=== PATIENT | male | born 1975 | race Caucasian/White ===

== ENCOUNTER 2017-12-16 10:51 | Emergency (ER) | payer BC, OTHER ==
[~2017-12-16] VITALS: Ht 175.3 cm; Wt 100.6 kg
[2017-12-16 10:54] VITALS: TEMP 36.7; Ht 175.3 cm; Wt 100.6 kg
--- NOTE | 2017-12-16 11:22 | DIAGNOSTIC IMAGING REPORT ---
R KNEE 3 VIEWS CLINICAL HISTORY: Right knee pain status post trauma COMPARISON: None. DISCUSSION: No fractures or dislocations are visualized. IMPRESSION: No fractures or dislocations identified. Electronically signed by: Stalin Salazar M.D. 12/16/2017 11:21 AM Dictated Date/Time: 12/16/2017 11:20 AM
[2017-12-16] MEDS ORDERED: TRAM-10 PO (11:36)
--- NOTE | 2017-12-16 11:44 | EMERGENCY ROOM VISIT NOTE ---
History First contact with patient: 11:01 Chief Complaint: KNEEPAIN Stated Complaint: R KNEE EXTREME PAIN, History of Present Illness The patient is a 42 year old male who presents to the Emergency Room with complaints of a right knee injury last night. The patient reports that he was standing on his porch and started to cough. The patient reports that he was coughing so hard that he believed that he passed out. He therefore does not recall what happened to the knee, but complains of pain over the anteromedial aspect. He has not noticed any instability, clicking or locking of the knee with ambulation. He rates his discomfort a 9 out of 10. He denies any pain extending into the thigh, hip or back. He denies any paresthesias or numbness of the right lower extremity. The patient denies any other injuries from his fall, and denies any prior history of right knee injuries. Review of Systems 10 system review was performed and was negative except for pertinent positives and negatives as indicated in history of present illness Past Medical/Surgical History Medical Problems: (1) Asthma, Unspecified (2) Pilonidal Cyst W/O Absc (3) Tobacco Use Disorder Surgical Problems: (1) No history of previous surgery Family History FH: diabetes mellitus Social History Smoking Status: Current Some Day Smoker Alcohol Use: occasionally Marital Status: single Occupation Status: employed Current/Historical Medications Scheduled PRN Tramadol (Ultram), 1-2 TAB PO Q4H PRN for Pain Physical Exam Vital Signs Date Time Temp Pulse Resp B/P (MAP) Pulse Ox O2 Delivery O2 Flow Rate FiO2 12/16/17 10:54 36.7 94 20 161/94 98 Room Air Physical Exam CONSTITUTIONAL: Healthy and well nourished. Alert and oriented X 3 with positive affect. Patient does not appear in any acute distress. HEENT: Normocephalic, atraumatic. Pupils equal, round and reactive. NECK: Full active range of motion without discomfort. MUSCULOSKELETAL: Examination of the right knee shows some mild soft tissue edema over the pes anserine region. Otherwise, no overriding erythema, ecchymosis, abrasion or laceration noted. Patient has minimal tenderness to palpation over the medial joint line, and no tenderness laterally. Patient exhibits full active flexion and extension. Collateral ligaments are intact. Distal pulses are intact. INTEGUMENTARY: No rash or other significant dermatologic conditions noted. NEUROLOGIC: No focal neurologic deficits noted. Left lower extremity is sensory intact. Medical Decision & Procedures ER Provider Diagnostic Interpretation: My interpretation of right knee x-rays does not show any obvious fractures, dislocation or joint effusion. Radiologist report is as follows: R KNEE 3 VIEWS CLINICAL HISTORY: Right knee pain status post trauma COMPARISON: None. DISCUSSION: No fractures or dislocations are visualized. IMPRESSION: No fractures or dislocations identified. ED Course Patient history and physical exam were performed. Nurse's notes were reviewed. Vital signs were reviewed and were normal. The patient refused any analgesics while in the emergency department. X-rays of the right knee were normal. The patient reports that he does have crutches at home. The patient works in [employer]. I did encourage the patient to avoid kneeling or squatting for now. A knee immobilizer was applied, and the patient was dispensed an ice pack. The patient was encouraged to intermittently apply ice and elevate the knee for swelling and pain. Ibuprofen and Tylenol in alternating fashion for baseline pain relief. The patient was provided a prescription for Ultram as needed for breakthrough pain. The patient was encouraged to follow-up with orthopedics if symptoms are not improving within the next week. The patient was happy with plan of care, voiced understanding of all discharge instructions, and rated his discomfort a 5 out of 10 at the conclusion of my exam, refusing any analgesics prior to discharge. The patient's blood pressure was elevated in the emergency department at 161/ 94. I did suggest that the patient follow-up with his PCP for blood pressure recheck. Medical Decision Medication Reconcilliation Current Medication List: was personally reviewed by me Blood Pressure Screening Patient's blood pressure: Elevated blood pressure Blood pressure disposition: Referred to PCP Impression Primary Impression: Contusion of right knee Additional Impression: Elevated blood pressure reading Departure Information Prescriptions Tramadol (Ultram) 50 Mg Tab 1-2 TAB PO Q4H Y for Pain, #15 TAB For Initial Treatment Prov: Ion Pearson PA 12/16/17 Referrals Alexandre Knox DO (PCP) Patient Instructions My [facility] Problem Qualifiers Primary Impression: Contusion of right knee Encounter type: initial encounter Qualified Codes: S80.01XA - Contusion of right knee, initial encounter
[2017-12-16 11:56] VITALS: BP 152/110; PULSE 85; O2SAT 95
== END 2017-12-16 11:58 | disposition home or self-care (01) ==
LOC: C.EDB 10:53 → C.EDD 11:58
DX: S80.01XA Contusion of right knee, initial encounter (principal); W19.XXXA Unspecified fall, initial encounter; R03.0 Elevated blood-pressure reading, without diagnosis of hypertension; J45.909 Unspecified asthma, uncomplicated; F17.200 Nicotine dependence, unspecified, uncomplicated

== ENCOUNTER 2025-05-17 00:56 | Observation (INO) ==
[2025-05-17 01:23] LABS: Hematocrit (blood only) 35.3 % (42.0-52.0); Hemoglobin 12.1 g/dl (14.0-18.0); Immature Granulocytes # (auto) 0.01 K/uL (0.01-0.20); Immature Granulocytes % (auto) 0.2 %; Mean Corpuscular Hemoglobin 31.3 pg (25.0-34.0); Mean Corpuscular Volume 91.5 fL (80.0-100.0); Platelet Count 127 K/uL (130-400); RDW Standard Deviation 44.8 fL (36.4-46.3); Red Blood Count 3.86 M/uL (4.70-6.10); White Blood Count 4.73 K/ul (4.8-10.8)
[2025-05-17 01:40] LABS: Alanine Aminotransferase 14.0 U/L (7-52); Albumin Globulin Ratio 1.1 (0.9-2); Albumin Level 3.5 gm/dl (3.4-5.0); Alkaline Phosphatase 174.0 U/L (34-104); Anion Gap 11.0 (3-11); Bilirubin,Total 1.9 mg/dl (0.2-1.0); Blood Urea Nitrogen 5.0 mg/dl (6-23); Calcium 8.8 mg/dl (8.6-10.3); Carbon Dioxide 25.0 mmol/L (21-32); Chloride 100.0 mmol/L (98-107); Creatinine Clr Calc Pharmacy 142.0 ml/min; Globulin 3.2 gm/dl (2.5-4.0); Glucose 109.0 mg/dl (70-99(Fasting)); Potassium 3.3 mmol/L (3.5-5.1); Sodium 136.0 mmol/L (136-145); Total Protein 6.7 gm/dl (6.0-8.3)
--- NOTE | 2025-05-17 01:52 | Emergency Department Note ---
Impression & Plan Alcohol withdrawal, Dyspnea admit to the [facility] ED Provider Note NAME: TRACIE PECK AGE: 49 SEX: Male INFORMANT: Patient ED PROVIDER(S): Arleth Leon DO CHIEF COMPLAINT: requesting detox PLAN: Disposition: admit to the [facility] MEDICAL DECISION MAKING: This is a 49-year-old male with history of alcoholism who presents to the emergency department asking for help stating that he needs detox and rehab again. patient also complains of shortness of breath. Patient was admitted to [facility] in March for alcohol rehab. After further discussion with the patient, it seems that he started drinking again shortly after that. He now will withdrawal if he does not drink alcohol routinely. Patient is concerned that his ascites has redeveloped. I saw the patient in the emergency department yesterday for an accidental overdose of kratom and THC Gummies. He was noted to be hypokalemic and hypomagnesemic at that time. Those were replaced. Alcohol level here today is 206. There is no leukocytosis. Hemoglobin is stable. Potassium is normal at 3.3. Magnesium is normal. Patient's D-dimer was elevated to 570. He went for CT scan of the chest to rule out PE. This was negative. Patient's LFTs are elevated. Total bilirubin was 1.9 and AST was 42. Renal function was normal. Patient received IV thiamine and folic acid along with oral multivitamin for his alcohol withdrawal. He was also given a dose of IV Ativan for developing withdrawal symptoms. The patient had to be premedicated with Benadryl and Solu- Medrol for the contrasted CAT scan. [facility] care for detox in preparation to go to rehab again. The retail store manager spoke with the patient and his about the situation. Triage Nursing notes: reviewed and agree with them. Vital Signs: reviewed and unremarkable Additional History obtained from: patient's is at the bedside Chronic Medical/Social Conditions affecting care: alcohol addiction Differential Diagnosis: PE, pneumonia, CHF, alcohol withdrawal, alcohol intoxication, anxiety Diagnostics, independently interpreted by me: ECG: Normal sinus rhythm at a rate of [address] segment elevation or signs of ischemia. patient has a prolonged QT at 510 ms. Cardiac Monitoring: Normal sinus rhythm at a rate of 89 Imaging studies: CTA of the chest: As per [facility] HPI: 49 year old Male arrives for evaluation of Alcohol intoxication. the patient is requesting detox and rehab again. patient also complains of shortness of breath. Patient admits that he has been drinking alcohol regularly since discharge from rehab back in March. It is to the point now that he withdrawals if he does not drink alcohol. PAST MEDICAL HISTORY: See Below, SOCIAL HISTORY: Patient works at [employer], he drinks alcohol regularly, he lives with his . HOME MEDICATIONS: See list ALLERGIES: see list VITALS: See Below PHYSICAL EXAMINATION: HEENT: Head - normocephalic and atraumatic. Pupils are equal, round, and reactive to light. Extraocular eye muscles are intact, and sclera are anicteric. Nose - moist nasal mucosa without discharge. Mouth - moist buccal mucosa. Oropharynx is nonerythematous and there is no tonsillar exudate or edema noted. Neck: Supple;JVD or cervical lymphadenopathy Heart: Regular rate and rhythm. There is a normal S1 and S2 with no murmurs, clicks, or gallops appreciated. Lungs: Clear to auscultation bilaterally with no wheezes, rales, or rhonchi. Abdomen: Soft, mildly distended and nontender with good bowel sounds. There are no palpable pulsatile masses or hepatosplenomegaly. There is no guarding, rigidity, or rebound noted. Extremities: No evidence of cyanosis, clubbing, or edema. There are easily palpable peripheral pulses. Skin: warm and dry with good turgor and no rashes. Emergency Department treatment: stemhole borer and topper, IV thiamine, IV folic acid, oral multivitamin, IV Ativan, IV Benadryl, IV Solu-Medrol emergency department course: The patient was evaluated in room C-3. A complete history and physical was performed. An order was placed for continuous cardiac monitoring. The patient was in a normal sinus rhythm at a rate of 89. Twelve- lead EKG was obtained as described above. Patient had an IV lock initiated and labs drawn as above. He was given a dose of IV thiamine, IV folic acid and oral multivitamin. Patient began to have withdrawal symptoms and was given a dose of IV Ativan. Patient has a known history of shellfish allergy and in preparation for a contrasted CAT scan he was given a dose of IV Benadryl and IV Solu-Medrol. Patient went for CT scan which was negative for PE. I discussed the case with the [facility] Hospitalist and they will evaluate for further inpatient care. Past Med/Surg History Problem List (Updated 05/17/25 @ 05:32 by Arleth Leon DO) Dyspnea (Acute) Alcohol withdrawal (Acute) Hypomagnesemia (Acute) Hypokalemia (Acute) Drug abuse (Acute) Alcohol intoxication (Acute) Unspecified asthma, uncomplicated Tobacco use disorder Medical History (Updated 05/17/25 @ 05:32 by Arleth Leon DO) No known health problems Family History Other No significant family history Social History Smoking Status: Current every day smoker Tobacco Type: Cigarettes Preferred Language: Tamazight Current Living Situation: Family Feels Safe at Home: Yes Allergies Allergies Allergy/AdvReac Type Severity Reaction Status Date / Time shellfish derived Allergy Unknown Unknown Verified 05/16/25 00:27 Sulfa (Sulfonamide AdvReac Intermediate low bp Verified 05/16/25 00:27 Antibiotics) Home Meds Home Medications Medication Instructions Recorded Confirmed apixaban 5 mg tablet (Eliquis) 5 mg PO QAM 05/16/25 05/16/25 fluoxetine 20 mg capsule 20 mg PO QAM 05/16/25 05/16/25 furosemide 40 mg tablet 40 mg PO QAM 05/16/25 05/16/25 pantoprazole 40 mg tablet,delayed 40 mg PO DAILY PRN 05/16/25 05/16/25 release HEARTBURN/INDIGESTION quetiapine 25 mg tablet 25 mg PO HS 05/16/25 05/16/25 spironolactone 50 mg tablet 50 mg PO QAM 05/16/25 05/16/25 triamcinolone acetonide 0.1 % 1 applic topical BID PRN Skin 05/16/25 05/16/25 topical ointment Irritation Results & Data (ED) Vital Signs Vital Signs - 24 hr 05/17/25 01:00 05/17/25 01:27 05/17/25 02:35 Temperature 36.8 C Temperature Source Temporal Artery Scan Pulse Rate 93 H 89 Pulse Rate [Apical] Pulse Rhythm Regular Pulse Rhythm [Apical] Pulse Strength Normal Pulse Strength [Apical] Respiratory Rate 22 Respiratory Effort / Characteristics Non-Labored Spontaneous Respiratory Depth Normal Respiratory Pattern Regular Blood Pressure 137/89 Blood Pressure [Right Arm] Blood Pressure Mean 105 Blood Pressure Mean [Right Arm] Blood Pressure Position Sitting Blood Pressure Position [Right Arm] Pulse Oximetry 96 Oxygen Delivery Method Room Air Room Air Oxygen Flow Rate Sepsis Recent Fever Within 48 Hours No Sepsis New/Unexplained Change in Mental Status No Sepsis Action Taken by Nursing No Action Required 05/17/25 02:45 05/17/25 03:44 05/17/25 04:00 Temperature Temperature Source Pulse Rate 66 Pulse Rate [Apical] 84 91 H Pulse Rhythm Regular Pulse Rhythm [Apical] Regular Pulse Strength Pulse Strength [Apical] Normal Respiratory Rate 14 18 18 Respiratory Effort / Characteristics Non-Labored Spontaneous Respiratory Depth Normal Normal Respiratory Pattern Regular Blood Pressure Blood Pressure [Right Arm] 120/75 131/85 Blood Pressure Mean Blood Pressure Mean [Right Arm] 90 100 Blood Pressure Position Blood Pressure Position [Right Arm] Semi-fowlers Pulse Oximetry 98 96 96 Oxygen Delivery Method Room Air Nasal Cannula Room Air Oxygen Flow Rate 2 Sepsis Recent Fever Within 48 Hours Sepsis New/Unexplained Change in Mental Status Sepsis Action Taken by Nursing 05/17/25 05:03 Temperature Temperature Source Pulse Rate 87 Pulse Rate [Apical] Pulse Rhythm Pulse Rhythm [Apical] Pulse Strength Pulse Strength [Apical] Respiratory Rate Respiratory Effort / Characteristics Respiratory Depth Respiratory Pattern Blood Pressure Blood Pressure [Right Arm] Blood Pressure Mean Blood Pressure Mean [Right Arm] Blood Pressure Position Blood Pressure Position [Right Arm] Pulse Oximetry Oxygen Delivery Method Oxygen Flow Rate Sepsis Recent Fever Within 48 Hours Sepsis New/Unexplained Change in Mental Status Sepsis Action Taken by Nursing Laboratory Data 05/17/25 01:08 05/17/25 01:08 Lab Results 05/17/25 05/17/25 Range/Units 01:08 01:12 WBC 4.73 L (4.8-10.8) K/ul RBC 3.86 L (4.70-6.10) M/uL Hgb 12.1 L (14.0-18.0) g/dl Hct 35.3 L (42.0-52.0) % MCV 91.5 (80.0-100.0) fL MCH 31.3 (25.0-34.0) pg MCHC 34.3 (32.0-36.0) g/dL RDW Std Deviation 44.8 (36.4-46.3) fL RDW Coeff of Zaheer 13.3 (11.5-14.5) % Plt Count 127 L (130-400) K/uL MPV 9.3 L (9.4-12.4) fL Immature Gran % (Auto) 0.2 % Neut % (Auto) 65.7 % Lymph % (Auto) 24.1 % [place] % (Auto) 7.2 % Eos % (Auto) 1.5 % Baso % (Auto) 1.3 % Neut # (Auto) 3.11 (1.40-6.50) K/uL Lymph # (Auto) 1.14 L (1.20-3.40) K/uL [place] # (Auto) 0.34 (0.11-0.59) K/uL Eos # (Auto) 0.07 (0.00-0.50) K/uL Baso # (Auto) 0.06 (0.00-0.20) K/uL Immature Gran # (Auto) 0.01 (0.01-0.20) K/uL D-Dimer 570 H* (0-500) ug/L FEU Sodium 136 (136-145) mmol/L Potassium 3.3 L (3.5-5.1) mmol/L Chloride 100 (98-107) mmol/L Carbon Dioxide 25 (21-32) mmol/L Anion Gap 11 (3-11) BUN 5 L (6-23) mg/dl Creatinine 0.73 (0.6-1.4) mg/dl Est Cr Clr Drug Dosing 142.0 ml/min eGFR 112.23 BUN/Creatinine Ratio 6.8 L (10-20) Glucose 109 H (70-99(Fasting)) mg/dl Calcium 8.8 (8.6-10.3) mg/dl Magnesium 1.8 (1.7-2.4) mg/dl Total Bilirubin 1.9 H (0.2-1.0) mg/dl AST 42 H (13-39) U/L ALT 14 (7-52) U/L Alkaline Phosphatase 174 H (34-104) U/L Total Protein 6.7 (6.0-8.3) gm/dl Albumin 3.5 (3.4-5.0) gm/dl Globulin 3.2 (2.5-4.0) gm/dl Albumin/Globulin Ratio 1.1 (0.9-2) Ethyl Alcohol mg/dL 206.5 H (<10.0) mg/dl Administered Medications Discontinued Medications Diphenhydramine HCl (Diphenhydramine 50 Mg/Ml Vial) 25 mg IV NOW STA Stop: 05/17/25 02:22 Last Admin: 05/17/25 02:33 Dose: 25 mg Documented By: ADA Folic Acid 1 mg/ Syringe 10 mls @ 5 mls/min IV NOW ONE Stop: 05/17/25 01:44 Last Admin: 05/17/25 02:33 Dose: 5 mls/min Documented By: ADA Thiamine HCl 100 mg/ Syringe 10 mls @ 2 mls/min IV NOW ONE Stop: 05/17/25 01:47 Last Admin: 05/17/25 02:33 Dose: 2 mls/min Documented By: ADA Ioversol (Optiray 320 125ml) 118 ml IV ONCE ONE Stop: 05/17/25 03:15 Last Admin: 05/17/25 03:14 Dose: 118 ml Documented By: CHANDRIKA Lorazepam (Lorazepam 1 Mg/1 Ml Syr Ed Inj Use) 1 mg IV ONE STA Stop: 05/17/25 02:43 Last Admin: 05/17/25 02:46 Dose: 1 mg Documented By: ADA Methylprednisolone (Methylprednisolone 125 Mg/2 Ml Vial) 125 mg IV NOW STA Stop: 05/17/25 02:22 Last Admin: 05/17/25 02:33 Dose: 125 mg Documented By: ADA Multivitamins (Multivitamin Tab) 1 tab PO NOW ONE Stop: 05/17/25 01:44 Last Admin: 05/17/25 02:32 Dose: 1 tab Documented By: ADA Potassium Chloride (Potassium Chloride Crtab 20 Meq Tabcr) 40 meq PO NOW STA Stop: 05/17/25 04:36 Last Admin: 05/17/25 04:54 Dose: 40 meq Documented By: ERNST Imaging Data Radiologist's Impression: Abdomen/Pelvis CT 05/17/25 02:15 EXAM: CT abd pelvis IV con only CLINICAL HISTORY: eval ascites TECHNIQUE: Contiguous axial images were obtained from the level of the diaphragm to the pubic symphysis with intravenous contrast. Coronal and sagittal reconstructions were likewise performed and indicated to increase the sensitivity for detecting clinically relevant pathology. If IV contrast material had not been administered, the likelihood of detecting abnormalities relevant to the patient's condition would have been substantially decreased. CT scan was performed according to ALARA (as low as reasonably achievable). COMPARISON: None. FINDINGS: The visualized lung bases are clear. Sliding hiatus hernia noted. Hepatomegaly measuring about 20 cm with hepatic steatosis. No focal liver lesions are seen. There is no intra or extrahepatic biliary ductal dilatation. Hepatic vasculature is patent. Mild dilatation of portal veins with few small collaterals are noted in peripancreatic region and at the splenic hilum - suggest possibility of portal hypertension. Splenomegaly measuring about 15 cm. The gallbladder is present. The pancreas, and adrenal glands are unremarkable. The kidneys are normal in size and attenuation. There is no hydronephrosis or perinephric fat stranding. No renal calculi or renal masses are identified. The ureters are normal in caliber and no ureteral calculi are seen. The bladder is normal in contour. Pelvic viscera are unremarkable. No focal or diffuse bowel wall thickening or evidence of bowel obstruction is identified. No imaging evidence of appendicitis. Abdominal and pelvic vasculature is patent. No adenopathy or fluid collections are seen. No aggressive appearing osseous lesions are identified. Bilateral fat containing inguinal hernia without complication. IMPRESSION: Hepatomegaly with hepatic steatosis. Splenomegaly. Mild dilatation of portal veins with few small collaterals are noted in peripancreatic region and at the splenic hilum - suggest possibility of portal hypertension. No ascites. Bilateral fat containing inguinal hernia without complication. Electronically signed by Adolfo Coates 05-17-2025 04:24 AM Chest CTA 05/17/25 02:15 EXAM: CT angio chest PE protocol CLINICAL HISTORY: PE TECHNIQUE: Contiguous axial images were obtained from the neck base through the upper abdomen following intravenous administration of iodinated contrast material. Angiographic images were processed, and 3D MIP images were acquired for interpretation. If IV contrast material had not been administered, the likelihood of detecting abnormalities relevant to the patient's condition would have been substantially decreased. Coronal and sagittal 3-D MIPs were likewise performed and indicated to increase the sensitivity of detecting diffuse, clinically relevant pathology. The CT scan was performed according to ALARA (as low as reasonably achievable). COMPARISON: CT dated 06/08/2019 12:37:56 [employer]. FINDINGS: Adequate contrast bolus is noted without evidence of pulmonary embolism. Dependent reticulations are seen. The central airways are patent. The rest of the lungs are clear. There is no pleural effusion. The heart, aorta, and pulmonary arteries are of normal size and configuration. No pericardial effusion is identified. There are no appreciable coronary artery or aortic atherosclerotic calcifications. The thyroid is unremarkable. No mediastinal, hilar, or axillary lymphadenopathy is noted. No suspicious lytic or sclerotic osseous lesions are identified. Note is made of an enlarged spleen. IMPRESSION: 1. No evidence of pulmonary embolism or pulmonary disease. Electronically signed by Adolfo Coates 05-17-2025 04:18 AM Discharge Plan Visit Data Chief Complaint: Shortness of Breath/Dyspnea Stated Complaint: DRUNK,SOB,ALLERGIC REACTION ED Provider: Arleth Leon Discharge Problem: Alcohol withdrawal, Dyspnea Condition: Fair Forms Stand Alone Forms: [facility] Prescriptions Prescriptions: No Action quetiapine 25 mg tablet 25 mg PO HS furosemide 40 mg tablet 40 mg PO QAM pantoprazole 40 mg tablet,delayed release (DR/EC) 40 mg PO DAILY PRN (Reason: HEARTBURN/INDIGESTION) triamcinolone acetonide 0.1 % ointment 1 applic TOPICAL BID PRN (Reason: Skin Irritation) fluoxetine 20 mg capsule 20 mg PO QAM spironolactone 50 mg tablet 50 mg PO QAM Eliquis 5 mg tablet 5 mg PO QAM Rx Instructions: ORDERED BID, PER PT "ONLY TAKE QAM". Referrals Referrals: Andrew Null DO [Primary Care Provider] -
[2025-05-17 02:05] LABS: Magnesium 1.8 mg/dl (1.7-2.4)
[2025-05-17] MEDS: MULTIVITAMIN TAB PO ONE (02:32)
[2025-05-17] MEDS: FOLIC ACID 1 MG in SYRINGE 9.8 ML IV ONE (02:33)
[2025-05-17] MEDS: THIAMINE HCL 100 MG in SYRINGE 9 ML IV ONE (02:33)
[2025-05-17] MEDS: diphenhydrAMINE 50 MG/ML VIAL IV STA (02:33)
[2025-05-17] MEDS: LORazepam 1 MG/1 ML SYR ED Inj Use IV STA (02:46)
[2025-05-17] MEDS: OPTIRAY 320 125ml IV ONE (03:14)
--- NOTE | 2025-05-17 04:18 | CT Scan Report ---
EXAM: CT angio chest PE protocol CLINICAL HISTORY: PE TECHNIQUE: Contiguous axial images were obtained from the neck base through the upper abdomen following intravenous administration of iodinated contrast material. Angiographic images were processed, and 3D MIP images were acquired for interpretation. If IV contrast material had not been administered, the likelihood of detecting abnormalities relevant to the patient's condition would have been substantially decreased. Coronal and sagittal 3-D MIPs were likewise performed and indicated to increase the sensitivity of detecting diffuse, clinically relevant pathology. The CT scan was performed according to ALARA (as low as reasonably achievable). COMPARISON: CT dated 06/08/2019 12:37:[address]. FINDINGS: Adequate contrast bolus is noted without evidence of pulmonary embolism. Dependent reticulations are seen. The central airways are patent. The rest of the lungs are clear. There is no pleural effusion. The heart, aorta, and pulmonary arteries are of normal size and configuration. No pericardial effusion is identified. There are no appreciable coronary artery or aortic atherosclerotic calcifications. The thyroid is unremarkable. No mediastinal, hilar, or axillary lymphadenopathy is noted. No suspicious lytic or sclerotic osseous lesions are identified. Note is made of an enlarged spleen. IMPRESSION: 1. No evidence of pulmonary embolism or pulmonary disease. Electronically signed by Adolfo Coates 05-17-2025 04:18 AM
--- NOTE | 2025-05-17 04:25 | CT Scan Report ---
EXAM: CT abd pelvis IV con only CLINICAL HISTORY: eval ascites TECHNIQUE: Contiguous axial images were obtained from the level of the diaphragm to the pubic symphysis with intravenous contrast. Coronal and sagittal reconstructions were likewise performed and indicated to increase the sensitivity for detecting clinically relevant pathology. If IV contrast material had not been administered, the likelihood of detecting abnormalities relevant to the patient's condition would have been substantially decreased. CT scan was performed according to ALARA (as low as reasonably achievable). COMPARISON: None. FINDINGS: The visualized lung bases are clear. Sliding hiatus hernia noted. Hepatomegaly measuring about 20 cm with hepatic steatosis. No focal liver lesions are seen. There is no intra or extrahepatic biliary ductal dilatation. Hepatic vasculature is patent. Mild dilatation of portal veins with few small collaterals are noted in peripancreatic region and at the splenic hilum - suggest possibility of portal hypertension. Splenomegaly measuring about 15 cm. The gallbladder is present. The pancreas, and adrenal glands are unremarkable. The kidneys are normal in size and attenuation. There is no hydronephrosis or perinephric fat stranding. No renal calculi or renal masses are identified. The ureters are normal in caliber and no ureteral calculi are seen. The bladder is normal in contour. Pelvic viscera are unremarkable. No focal or diffuse bowel wall thickening or evidence of bowel obstruction is identified. No imaging evidence of appendicitis. Abdominal and pelvic vasculature is patent. No adenopathy or fluid collections are seen. No aggressive appearing osseous lesions are identified. Bilateral fat containing inguinal hernia without complication. IMPRESSION: Hepatomegaly with hepatic steatosis. Splenomegaly. Mild dilatation of portal veins with few small collaterals are noted in peripancreatic region and at the splenic hilum - suggest possibility of portal hypertension. No ascites. Bilateral fat containing inguinal hernia without complication. Electronically signed by Adolfo Coates 05-17-2025 04:24 AM
[2025-05-17] MEDS: POTASSIUM CHLORIDE CRTAB 20 MEQ TABCR PO STA (04:54)
--- NOTE | 2025-05-17 05:41 | History & Physical Report ---
Date of Service May 17, 2025 Assessment & Plan (1) Alcoholism: Plan: 49-year-old male with past medical history significant for dyslipidemia, peripheral vascular disease, GERD, history of tick bite, depression, tobacco abuse, ongoing alcoholism presents for alcohol detox request. Patient was in alcohol rehab in [place] in [facility] in March 2025. But seems to started drinking shortly after the rehab. Patient was in the ER yesterday because he took [id number] kratom and also THC Gummies and drank 2 white claws which have 8% alcohol and was having dizziness, abdominal bloating and shortness of breath. He was found to have hypokalemia and hypomagnesia which were replaced. His symptoms improved and was discharged home to follow-up with PCP. Patient seems again he was drinking alcohol today. His states he was drinking again white claws alcohol. Patient called from his work and told he was not feeling good and getting withdrawal symptoms ,was feeling short of breath and shaky and told her that he wanted to get help and want to go to rehab again and later again drank alcohol.. brought him to the hospital for alcohol detox and rehab placement. wanted him to go to same rehab as he was in March. As patient was complaining of some shortness of breath with D-dimer elevation and also was worried for abdominal ascites CTA chest and CT abdomen pelvis were done. No PE and no ascites were found. Patient received Benadryl and also IV Ativan and somewhat drowsy currently. Denies any headache. Denies chest pain. Denies abdominal pain. Denies nausea. Has cough from smoking. Normal bowel and bladder movements. Hemodynamics are okay. is in the room. Alcoholism Alcohol detox request Alcohol withdrawal Request for alcohol rehab placement Received IV Ativan in the ER Will continue with alcohol withdrawal protocol with gabapentin and IV Ativan as needed Received IV thiamine in ER will continue IV thiamine, IV folic acid and multivitamins Close monitor for withdrawals History of PE Diagnosed in March of this year as per CTA chest no PE today Continue Eliquis History of alcohol liver cirrhosis with ascites CT abdomen pelvis no ascites today Continue home Lasix and spironolactone GERD On Protonix Prolonged QTc Avoid QT prolonging drugs Replacing potassium Will follow repeat EKG Depression Hold fluoxetine and Seroquel for now for prolonged QTc Pancytopenia Mostly from alcohol liver cirrhosis Hemoglobin 12.1 and platelets 127 Will follow labs. DVT prophylaxis On Eliquis. Will monitor platelets Disposition Med/telemetry Full code History of Present Illness Chief Complaint: Alcoholism Primary Care Provider: Andrew Null DO 49-year-old male with past medical history significant for dyslipidemia, peripheral vascular disease, GERD, history of tick bite, depression, tobacco abuse, ongoing alcoholism presents for alcohol detox request. Patient was in alcohol rehab in [place] in [facility] in March 2025. But seems to started drinking shortly after the rehab. Patient was in the ER yesterday because he to ok [id number] kratom and also THC Gummies and drank 2 white claws which have 8% alcohol and was having dizziness, abdominal bloating and shortness of breath. He was found to have hypokalemia and hypomagnesia which were replaced. His symptoms improved and was discharged home to follow-up with PCP. Patient seems again he was drinking alcohol today. His states he was drinking again white claws alcohol. Patient called from his work and told he was not feeling good and getting withdrawal symptoms ,was feeling short of breath and shaky and told her that he wanted to get help and want to go to rehab again and later again drank alcohol.. brought him to the hospital for alcohol detox and rehab placement. wanted him to go to same rehab as he was in March. As patient was complaining of some shortness of breath with D-dimer elevation and also was worried for abdominal ascites CTA chest and CT abdomen pelvis were done. No PE and no ascites were found. Patient received Benadryl and also IV Ativan and somewhat drowsy currently. Denies any headache. Denies chest pain. Denies abdominal pain. Denies nausea. Has cough from smoking. Normal bowel and bladder movements. Hemodynamics are okay. is in the room. Past medical history. As mentioned above. Past surgical history. Colonoscopy. Dental surgery. EGD. EGD with endoscopic ultrasound. Injection of the lumbosacral spine. Social history. . Smoking electric cigarettes as per . Drinking heavy alcohol. Uses marijuana recreationally as per epic. Family history. Father alcoholism. Mother had osteoarthritis. Allergies Allergy/AdvReac Type Severity Reaction Status Date / Time shellfish derived Allergy Unknown Unknown Verified 05/16/25 00:27 Sulfa (Sulfonamide AdvReac Intermediate low bp Verified 05/16/25 00:27 Antibiotics) Home Medications Medication Instructions Recorded Confirmed Type apixaban 5 mg tablet (Eliquis) 5 mg PO BID 05/17/25 05/17/25 History fluoxetine 20 mg capsule 20 mg PO DAILY 05/17/25 05/17/25 History furosemide 40 mg tablet 40 mg PO DAILY 05/17/25 05/17/25 History pantoprazole 40 mg tablet,delayed 40 mg PO DAILY 05/17/25 05/17/25 History release quetiapine 25 mg tablet 25 mg PO HS 05/17/25 05/17/25 History spironolactone 50 mg tablet 50 mg PO DAILY 05/17/25 05/17/25 History Past Med/Surg History Problem List (Updated 05/17/25 @ 05:44 by Zuhair Sanderson MD) Alcoholism Dyspnea (Acute) Alcohol withdrawal (Acute) Hypomagnesemia (Acute) Hypokalemia (Acute) Drug abuse (Acute) Alcohol intoxication (Acute) Unspecified asthma, uncomplicated Tobacco use disorder Medical History (Updated 05/17/25 @ 05:44 by Zuhair Sanderson MD) No known health problems Family History Other No significant family history Social History Smoking Status: Current every day smoker Tobacco Type: Cigarettes Preferred Language: [place] Current Living Situation: Family Feels Safe at Home: Yes Review of Systems Review of Systems: Unobtainable due to reduced consciousness Physical Exam Physical Exam: General- Drowsy Head- atraumatic Eyes- PERRL. ENT- oropharynx clear Neck- supple, no JVD. Lungs- clear to auscultation no wheezing or crackles Heart- regular rhythm; no murmur, no gallop. Abdomen- normal bowel sounds, soft, nontender, no distension Extremities- no pretibial edema, no erythema seen Neuro- Drowsy ; PERRL, ; no facial palsy; no dysarthria; moves extremities Results & Data Results & Data Vital Signs (Past 12 Hours) Vital Signs Temp Pulse Pulse Resp BP BP Pulse Ox 05/17/25 05:03 87 05/17/25 04:00 91 H 18 131/85 96 09/13/25 03:44 66 18 96 05/17/25 02:45 84 14 120/75 98 05/17/25 02:35 05/17/25 01:27 89 05/17/25 01:00 36.8 C 93 H 22 137/89 96 O2 Del Method O2 Flow Rate 05/17/25 05:03 05/17/25 04:00 Room Air 05/17/25 03:44 Nasal Cannula 2 05/17/25 02:45 Room Air 05/17/25 02:35 Room Air 05/17/25 01:27 05/17/25 01:00 Room Air Diagnostic Findings Laboratory Results WBC 4.73 K/ul (4.8-10.8) L 05/17/25 01:08 RBC 3.86 M/uL (4.70-6.10) L 05/17/25 01:08 Hgb 12.1 g/dl (14.0-18.0) L 05/17/25 01:08 Hct 35.3 % (42.0-52.0) L 05/17/25 01:08 MCV 91.5 fL (80.0-100.0) 05/17/25 01:08 MCH 31.3 pg (25.0-34.0) 05/17/25 01:08 MCHC 34.3 g/dL (32.0-36.0) 05/17/25 01:08 RDW Std Deviation 44.8 fL (36.4-46.3) 05/17/25 01:08 RDW Coeff of Zaheer 13.3 % (11.5-14.5) 05/17/25 01:08 Plt Count 127 K/uL (130-400) L 05/17/25 01:08 MPV 9.3 fL (9.4-12.4) L 05/17/25 01:08 Immature Gran % (Auto) 0.2 % 05/17/25 01:08 Neut % (Auto) 65.7 % 05/17/25 01:08 Lymph % (Auto) 24.1 % 05/17/25 01:08 [place] % (Auto) 7.2 % 05/17/25 01:08 Eos % (Auto) 1.5 % 05/17/25 01:08 Baso % (Auto) 1.3 % 05/17/25 01:08 Neut # (Auto) 3.11 K/uL (1.40-6.50) 05/17/25 01:08 Lymph # (Auto) 1.14 K/uL (1.20-3.40) L 05/17/25 01:08 [place] # (Auto) 0.34 K/uL (0.11-0.59) 05/17/25 01:08 Eos # (Auto) 0.07 K/uL (0.00-0.50) 05/17/25 01:08 Baso # (Auto) 0.06 K/uL (0.00-0.20) 05/17/25 01:08 Immature Gran # (Auto) 0.01 K/uL (0.01-0.20) 05/17/25 01:08 D-Dimer 570 ug/L FEU (0-500) H* 05/17/25 01:12 Sodium 136 mmol/L (136-145) 05/17/25 01:08 Potassium 3.3 mmol/L (3.5-5.1) L 05/17/25 01:08 Chloride 100 mmol/L (98-107) 05/17/25 01:08 Carbon Dioxide 25 mmol/L (21-32) 05/17/25 01:08 Anion Gap 11 (3-11) 05/17/25 01:08 BUN 5 mg/dl (6-23) L 05/17/25 01:08 Creatinine 0.73 mg/dl (0.6-1.4) 05/17/25 01:08 Est Cr Clr Drug Dosing 142.0 ml/min 05/17/25 01:08 eGFR 112.23 05/17/25 01:08 BUN/Creatinine Ratio 6.8 (10-20) L 05/17/25 01:08 Glucose 109 mg/dl (70-99(Fasting)) H 05/17/25 01:08 Calcium 8.8 mg/dl (8.6-10.3) 05/17/25 01:08 Magnesium 1.8 mg/dl (1.7-2.4) 05/17/25 01:08 Total Bilirubin 1.9 mg/dl (0.2-1.0) H 05/17/25 01:08 AST 42 U/L (13-39) H 05/17/25 01:08 ALT 14 U/L (7-52) 05/17/25 01:08 Alkaline Phosphatase 174 U/L (34-104) H 05/17/25 01:08 Total Protein 6.7 gm/dl (6.0-8.3) 05/17/25 01:08 Albumin 3.5 gm/dl (3.4-5.0) 05/17/25 01:08 Globulin 3.2 gm/dl (2.5-4.0) 05/17/25 01:08 Albumin/Globulin Ratio 1.1 (0.9-2) 05/17/25 01:08 Ethyl Alcohol mg/dL 206.5 mg/dl (<10.0) H 05/17/25 01:08 Impressions Abdomen/Pelvis CT 05/17/25 02:15 EXAM: CT abd pelvis IV con only CLINICAL HISTORY: eval ascites TECHNIQUE: Contiguous axial images were obtained from the level of the diaphragm to the pubic symphysis with intravenous contrast. Coronal and sagittal reconstructions were likewise performed and indicated to increase the sensitivity for detecting clinically relevant pathology. If IV contrast material had not been administered, the likelihood of detecting abnormalities relevant to the patient's condition would have been substantially decreased. CT scan was performed according to ALARA (as low as reasonably achievable). COMPARISON: None. FINDINGS: The visualized lung bases are clear. Sliding hiatus hernia noted. Hepatomegaly measuring about 20 cm with hepatic steatosis. No focal liver lesions are seen. There is no intra or extrahepatic biliary ductal dilatation. Hepatic vasculature is patent. Mild dilatation of portal veins with few small collaterals are noted in peripancreatic region and at the splenic hilum - suggest possibility of portal hypertension. Splenomegaly measuring about 15 cm. The gallbladder is present. The pancreas, and adrenal glands are unremarkable. The kidneys are normal in size and attenuation. There is no hydronephrosis or perinephric fat stranding. No renal calculi or renal masses are identified. The ureters are normal in caliber and no ureteral calculi are seen. The bladder is normal in contour. Pelvic viscera are unremarkable. No focal or diffuse bowel wall thickening or evidence of bowel obstruction is identified. No imaging evidence of appendicitis. Abdominal and pelvic vasculature is patent. No adenopathy or fluid collections are seen. No aggressive appearing osseous lesions are identified. Bilateral fat containing inguinal hernia without complication. IMPRESSION: Hepatomegaly with hepatic steatosis. Splenomegaly. Mild dilatation of portal veins with few small collaterals are noted in peripancreatic region and at the splenic hilum - suggest possibility of portal hypertension. No ascites. Bilateral fat containing inguinal hernia without complication. Electronically signed by Adolfo Coates 05-17-2025 04:24 AM Chest CTA 05/17/25 02:15 EXAM: CT angio chest PE protocol CLINICAL HISTORY: PE TECHNIQUE: Contiguous axial images were obtained from the neck base through the upper abdomen following intravenous administration of iodinated contrast material. Angiographic images were processed, and 3D MIP images were acquired for interpretation. If IV contrast material had not been administered, the likelihood of detecting abnormalities relevant to the patient's condition would have been substantially decreased. Coronal and sagittal 3-D MIPs were likewise performed and indicated to increase the sensitivity of detecting diffuse, clinically relevant pathology. The CT scan was performed according to ALARA (as low as reasonably achievable). 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 FINDINGS: Adequate contrast bolus is noted without evidence of pulmonary embolism. Dependent reticulations are seen. The central airways are patent. The rest of the lungs are clear. There is no pleural effusion. The heart, aorta, and pulmonary arteries are of normal size and configuration. No pericardial effusion is identified. There are no appreciable coronary artery or aortic atherosclerotic calcifications. The thyroid is unremarkable. No mediastinal, hilar, or axillary lymphadenopathy is noted. No suspicious lytic or sclerotic osseous lesions are identified. Note is made of an enlarged spleen. IMPRESSION: 1. No evidence of pulmonary embolism or pulmonary disease. Electronically signed by Adolfo Coates 05-17-2025 04:18 AM ECG Additional Comments: ECG. Normal sinus rhythm rate of 88. Possible left atrial lodgment. QTc 510. No significant change was found. Code Status & VTE Plan VTE Prophylaxis Plan VTE Prophylaxis will be ordered: Yes
[2025-05-17] MEDS ORDERED: GABAPENTIN 1200MG ALCOHOL WITHDRAWAL LOAD PO STA (12:35)
[2025-05-17] MEDS ORDERED: NITROGLYCERIN SL 0.4 MG/TAB TAB SL PRN (12:35)
[2025-05-17] MEDS: APIXABAN 5 MG TABLET PO SCH (13:06)
[2025-05-17] MEDS: GABAPENTIN 600 MG TAB PO ONE (13:06)
[2025-05-17] MEDS: MULTIVITAMIN TAB PO SCH (13:07)
[2025-05-17 13:19] LABS: Anion Gap 7.0 (3-11); Blood Urea Nitrogen 5.0 mg/dl (6-23); Calcium 8.8 mg/dl (8.6-10.3); Carbon Dioxide 26.0 mmol/L (21-32); Chloride 104.0 mmol/L (98-107); Creatinine Clr Calc Pharmacy 167.2 ml/min; Glucose 158.0 mg/dl (70-99(Fasting)); Magnesium 1.8 mg/dl (1.7-2.4); Potassium 4.4 mmol/L (3.5-5.1); Sodium 137.0 mmol/L (136-145)
[2025-05-17] MEDS: SODIUM CHLORIDE 0.9% 1,000 ML IV SCH (13:20)
[2025-05-17] MEDS: FOLIC ACID 1 MG in SYRINGE 9.8 ML IV SCH (13:20)
[2025-05-17] MEDS: THIAMINE HCL 100 MG in SYRINGE 9 ML IV SCH (13:21)
--- NOTE | 2025-05-17 13:34 | Hospitalist Progress Note ---
Date of Service May 17, 2025 Assessment & Plan (1) Alcoholism: Plan: 49-year-old male with past medical history significant for dyslipidemia, peripheral vascular disease, GERD, history of tick bite, depression, tobacco abuse, ongoing alcoholism presents for alcohol detox request. Patient was in alcohol rehab in [place] in [facility] in March 2025. But seems to started drinking shortly after the rehab. Patient was in the ER yesterday because he took [id number]-[id number] kratom and also THC Gummies and drank 2 white claws which have 8% alcohol and was having dizziness, abdominal bloating and shortness of breath. He was found to have hypokalemia and hypomagnesia which were replaced. His symptoms improved and was discharged home to follow-up with PCP. Patient seems again he was drinking alcohol today. His states he was drinking again white claws alcohol. Patient called from his work and told he was not feeling good and getting withdrawal symptoms ,was feeling short of breath and shaky and told her that he wanted to get help and want to go to rehab again and later again drank alcohol.. brought him to the hospital for alcohol detox and rehab placement. wanted him to go to same rehab as he was in March. As patient was complaining of some shortness of breath with D-dimer elevation and also was worried for abdominal ascites CTA chest and CT abdomen pelvis were done. No PE and no ascites were found. Patient received Benadryl and also IV Ativan and somewhat drowsy currently. Denies any headache. Denies chest pain. Denies abdominal pain. Denies nausea. Has cough from smoking. Normal bowel and bladder movements. Hemodynamics are okay. is in the room. Alcoholism Alcohol withdrawal Alcohol level 206 drug screen positive for THC, Alcohol Continue gabapentin protocol IV Ativan as needed Continue thiamine, folic acid Monitor for withdrawal Patient interested in drug rehab placement Hypokalemia Replete and monitor Elevated D-dimer H/O PE --Chest CTA:No evidence of pulmonary embolism or pulmonary disease. -- Venous Doppler pending Continue Eliquis Hepatosplenomegaly Possible portal hypertension H/O Alcohol liver cirrhosis with ascites --CT ABD:Hepatomegaly with hepatic steatosis. Splenomegaly. Mild dilatation of portal veins with few small collaterals are noted in peripancreatic region and at the splenic hilum - suggest possibility of portal hypertension. No ascites. Bilateral fat containing inguinal hernia without complication. -- Counseled to quit alcohol use Interested in drug rehab placement Continue home diuretics Lasix, Aldactone Monitor volume status H/O THC use Denies any recent use GERD Continue Protonix Prolonged QTc Avoid QT prolonging drugs Monitor EKG Depression Hold fluoxetine and Seroquel for now for prolonged QTc Pancytopenia Due to alcohol liver disease Monitor CBC DVT Px: Eliquis CODE STATUS Full code Disposition Case management to help with discharge planning Admission and Anticipated Discharge Date Admission Date: May 17, 2025 Subjective Patient is seen and examined at bedside " I feel foggy" Reports back pain and shortness of breath better when compared to yesterday Chronic intermittent palpitations No other complaints today Interested in going to drug rehab facility when stable Review of Systems Review of Systems: All systems reviewed & are unremarkable except as noted in Subjective Physical Exam Physical Exam: Physical Exam: Vitals signs as noted above General Appearance:Overweight, no apparent distress Head: normocephalic, Atraumatic Eyes: normal inspection, EOMI Neck: supple, Trachea midline Respiratory/Chest: Normal breath sounds, CTA, No accessory muscle use Cardiovascular: S1, S2, No murmur Abdomen/GI:Soft, Non tender, Bowel sounds present Extremities/Musculoskeletal:normal inspection, no edema Neurologic/Psych:AAOX3, grossly no focal neurological deficits, +Tremor Skin: normal color, warm Results & Data Results & Data Vital Signs (Past 12 Hours) Vital Signs Pulse Pulse Resp BP BP Pulse Ox O2 Del Method 05/17/25 12:00 87 16 138/87 91 Room Air 05/17/25 10:45 92 H 12 91 05/17/25 10:30 90 12 135/89 95 Room Air 05/17/25 09:20 85 05/17/25 08:00 91 H 16 120/78 92 Nasal Cannula 05/17/25 06:00 95 H 18 131/91 95 Nasal Cannula 05/17/25 05:03 87 05/17/25 04:00 91 H 18 131/85 96 Nasal Cannula 05/17/25 03:44 66 18 96 Nasal Cannula 05/17/25 02:45 84 14 120/75 98 Room Air 05/17/25 02:35 Room Air 05/17/25 01:27 89 O2 Flow Rate 05/17/25 12:00 05/17/25 10:45 05/17/25 10:30 05/17/25 09:20 05/17/25 08:00 2 05/17/25 06:00 2 05/17/25 05:03 05/17/25 04:00 2 05/17/25 03:44 2 05/17/25 02:45 05/17/25 02:35 05/17/25 01:27 Laboratory Results Short CBC 05/17/25 Range/Units 01:08 WBC 4.73 L (4.8-10.8) K/ul Hgb 12.1 L (14.0-18.0) g/dl Hct 35.3 L (42.0-52.0) % Plt Count 127 L (130-400) K/uL BMP 05/17/25 05/17/25 01:08 12:46 Sodium 136 137 Potassium 3.3 L 4.4 D Chloride 100 104 Carbon Dioxide 25 26 BUN 5 L 5 L Creatinine 0.73 0.62 Glucose 109 H 158 H Calcium 8.8 8.8 Liver Function 05/17/25 Range/Units 01:08 Total Bilirubin 1.9 H (0.2-1.0) mg/dl AST 42 H (13-39) U/L ALT 14 (7-52) U/L Alkaline Phosphatase 174 H (34-104) U/L Albumin 3.5 (3.4-5.0) gm/dl
[2025-05-17] MEDS: SPIRONOLACTONE 25 MG TAB PO SCH (13:35)
[2025-05-17] MEDS: FUROSEMIDE 40 MG TAB PO SCH (13:35)
--- NOTE | 2025-05-17 18:00 | Ultrasound Report ---
Exam: Bilateral lower extremity venous Doppler. History: Elevated D-dimer. Recent PE. Comparison:None. Findings: Bilateral common femoral, femoral, popliteal, peroneal, posterior and anterior tibial veins demonstrate compression, augmentation and/or color flow. Impression: No appreciated DVT. Electronically signed by Patrice Deluca 05-17-2025 5:55 PM
[2025-05-17] MEDS: GABAPENTIN 600 MG TAB PO SCH (18:21)
[2025-05-18 07:33] LABS: Hematocrit (blood only) 39.8 % (42.0-52.0); Hemoglobin 12.9 g/dl (14.0-18.0); Mean Corpuscular Hemoglobin 30.9 pg (25.0-34.0); Mean Corpuscular Volume 95.2 fL (80.0-100.0); Platelet Count 133 K/uL (130-400); RDW Standard Deviation 47.1 fL (36.4-46.3); Red Blood Count 4.18 M/uL (4.70-6.10); White Blood Count 6.61 K/ul (4.8-10.8)
[2025-05-18] MEDS: GABAPENTIN 600 MG TAB PO SCH (08:00)
[2025-05-18 08:08] LABS: Alanine Aminotransferase 14.0 U/L (7-52); Albumin Globulin Ratio 1.1 (0.9-2); Albumin Level 3.6 gm/dl (3.4-5.0); Alkaline Phosphatase 178.0 U/L (34-104); Anion Gap 6.0 (3-11); Bilirubin,Total 2.4 mg/dl (0.2-1.0); Blood Urea Nitrogen 10.0 mg/dl (6-23); Calcium 9.0 mg/dl (8.6-10.3); Carbon Dioxide 32.0 mmol/L (21-32); Chloride 103.0 mmol/L (98-107); Creatinine Clr Calc Pharmacy 137.1 ml/min; Globulin 3.2 gm/dl (2.5-4.0); Glucose 101.0 mg/dl (70-99(Fasting)); Potassium 3.9 mmol/L (3.5-5.1); Sodium 141.0 mmol/L (136-145); Total Protein 6.8 gm/dl (6.0-8.3)
--- NOTE | 2025-05-18 13:42 | Hospitalist Progress Note ---
Date of Service May 18, 2025 Assessment & Plan (1) Alcoholism: Plan: 49-year-old male with past medical history significant for dyslipidemia, peripheral vascular disease, GERD, history of tick bite, depression, tobacco abuse, ongoing alcoholism presents for alcohol detox request. Patient was in alcohol rehab in [place] in [facility] in March 2025. But seems to started drinking shortly after the rehab. Patient was in the ER yesterday because he took [id number] kratom and also THC Gummies and drank 2 white claws which have 8% alcohol and was having dizziness, abdominal bloating and shortness of breath. He was found to have hypokalemia and hypomagnesia which were replaced. His symptoms improved and was discharged home to follow-up with PCP. Patient seems again he was drinking alcohol today. His states he was drinking again white claws alcohol. Patient called from his work and told he was not feeling good and getting withdrawal symptoms ,was feeling short of breath and shaky and told her that he wanted to get help and want to go to rehab again and later again drank alcohol.. brought him to the hospital for alcohol detox and rehab placement. wanted him to go to same rehab as he was in March. As patient was complaining of some shortness of breath with D-dimer elevation and also was worried for abdominal ascites CTA chest and CT abdomen pelvis were done. No PE and no ascites were found. Patient received Benadryl and also IV Ativan and somewhat drowsy currently. Denies any headache. Denies chest pain. Denies abdominal pain. Denies nausea. Has cough from smoking. Normal bowel and bladder movements. Hemodynamics are okay. is in the room. Alcoholism Alcohol withdrawal Alcohol level 206 drug screen positive for THC, Alcohol Continue gabapentin protocol IV Ativan as needed Continue thiamine, folic acid Monitor for withdrawal Patient interested in drug rehab placement No significant withdrawal symptoms today Case management to help with discharge planning Hypokalemia Replete and monitor Elevated D-dimer H/O PE --Chest CTA:No evidence of pulmonary embolism or pulmonary disease. -- Venous Doppler: No appreciated DVT. Continue Eliquis Hepatosplenomegaly Possible portal hypertension H/O Alcohol liver cirrhosis with ascites --CT ABD:Hepatomegaly with hepatic steatosis. Splenomegaly. Mild dilatation of portal veins with few small collaterals are noted in peripancreatic region and at the splenic hilum - suggest possibility of portal hypertension. No ascites. Bilateral fat containing inguinal hernia without complication. -- Counseled to quit alcohol use Interested in drug rehab placement Continue home diuretics Lasix, Aldactone Monitor volume status H/O THC use Denies any recent use GERD Continue Protonix Prolonged QTc Avoid QT prolonging drugs Monitor EKG Depression Hold fluoxetine and Seroquel for now for prolonged QTc Pancytopenia Due to alcohol liver disease/marrow suppression from alcohol use Leukopenia, thrombocytopenia resolved Monitor CBC DVT Px: Eliquis CODE STATUS Full code Disposition Case management to help with discharge planning Admission and Anticipated Discharge Date Admission Date: May 17, 2025 Subjective Patient is seen and examined at bedside States feeling much better today Reports having some balance issues while ambulating Otherwise no other complaints today Dyspnea resolved Denies any chest pain, nausea, vomiting, abdominal pain, dizziness Review of Systems Review of Systems: All systems reviewed & are unremarkable except as noted in Subjective Physical Exam Physical Exam: Physical Exam: Vitals signs as noted above General Appearance:Overweight, no apparent distress Head: normocephalic, Atraumatic Eyes: normal inspection, EOMI Neck: supple, Trachea midline Respiratory/Chest: Normal breath sounds, CTA, No accessory muscle use Cardiovascular: S1, S2, No murmur Abdomen/GI:Soft, Non tender, Bowel sounds present Extremities/Musculoskeletal:normal inspection, no edema Neurologic/Psych:AAOX3, grossly no focal neurological deficits, +Tremor Skin: normal color, warm Results & Data Results & Data Vital Signs (Past 12 Hours) Vital Signs Temp Pulse Pulse Resp BP BP Pulse Ox 05/18/25 11:07 36.3 C L 86 18 133/81 98 05/18/25 07:18 36.7 C 62 17 140/88 99 05/18/25 06:45 76 05/18/25 03:06 36.5 C 81 16 147/89 H 98 O2 Del Method 05/18/25 11:07 Room Air 05/18/25 07:18 Room Air 05/18/25 06:45 05/18/25 03:06 Room Air Laboratory Results Short CBC 05/18/25 Range/Units 06:45 WBC 6.61 (4.8-10.8) K/ul Hgb 12.9 L (14.0-18.0) g/dl Hct 39.8 L (42.0-52.0) % Plt Count 133 (130-400) K/uL BMP 05/18/25 06:45 Sodium 141 Potassium 3.9 Chloride 103 Carbon Dioxide 32 BUN 10 Creatinine 0.75 Glucose 101 H Calcium 9.0 Liver Function 05/18/25 Range/Units 06:45 Total Bilirubin 2.4 H (0.2-1.0) mg/dl AST 35 (13-39) U/L ALT 14 (7-52) U/L Alkaline Phosphatase 178 H (34-104) U/L Albumin 3.6 (3.4-5.0) gm/dl
[2025-05-19 08:07] LABS: Hematocrit (blood only) 37.4 % (42.0-52.0); Hemoglobin 12.2 g/dl (14.0-18.0); Mean Corpuscular Hemoglobin 30.5 pg (25.0-34.0); Mean Corpuscular Volume 93.5 fL (80.0-100.0); Platelet Count 106 K/uL (130-400); RDW Standard Deviation 45.6 fL (36.4-46.3); Red Blood Count 4.00 M/uL (4.70-6.10); White Blood Count 4.37 K/ul (4.8-10.8)
[2025-05-19 08:27] LABS: Alanine Aminotransferase 15.0 U/L (7-52); Albumin Globulin Ratio 1.3 (0.9-2); Albumin Level 3.3 gm/dl (3.4-5.0); Alkaline Phosphatase 119.0 U/L (34-104); Anion Gap 6.0 (3-11); Bilirubin,Total 2.8 mg/dl (0.2-1.0); Blood Urea Nitrogen 9.0 mg/dl (6-23); Calcium 8.8 mg/dl (8.6-10.3); Carbon Dioxide 31.0 mmol/L (21-32); Chloride 103.0 mmol/L (98-107); Creatinine Clr Calc Pharmacy 128.0 ml/min; Globulin 2.6 gm/dl (2.5-4.0); Glucose 76.0 mg/dl (70-99(Fasting)); Magnesium 1.7 mg/dl (1.7-2.4); Potassium 3.9 mmol/L (3.5-5.1); Sodium 140.0 mmol/L (136-145); Total Protein 5.9 gm/dl (6.0-8.3)
[2025-05-19] MEDS: GABAPENTIN 600 MG TAB PO SCH (12:48)
--- NOTE | 2025-05-19 13:08 | Electrocardiogram Report ---
Test Reason : Blood Pressure : */* mmHG Vent. Rate : 88 BPM Atrial Rate : 88 BPM P-R Int : 162 ms QRS Dur : 90 ms QT Int : 422 ms P-R-T Axes : 61 36 38 degrees QTcB Int : 510 ms Normal sinus rhythm Possible Left atrial enlargement Prolonged QT Abnormal ECG When compared with ECG of 15-May-2025 23:13, No significant change was found Confirmed by Stephen Campos ([id number]) on 05/19/2025 1:08:14 PM Referred By: REFERRED SELF Confirmed By: Stephen Campos
[2025-05-19 16:22] VITALS: BP 133/66; RESP 18; TEMP 98; O2SAT 98
--- NOTE | 2025-05-19 16:59 | Hospitalist Progress Note ---
Date of Service May 19, 2025 Assessment & Plan (1) Alcoholism: Plan: 49-year-old male with past medical history significant for dyslipidemia, peripheral vascular disease, GERD, history of tick bite, depression, tobacco abuse, ongoing alcoholism presents for alcohol detox request. Patient was in alcohol rehab in [place] in [facility] in March 2025. But seems to started drinking shortly after the rehab. Patient was in the ER yesterday because he took [id number] kratom and also THC Gummies and drank 2 white claws which have 8% alcohol and was having dizziness, abdominal bloating and shortness of breath. He was found to have hypokalemia and hypomagnesia which were replaced. His symptoms improved and was discharged home to follow-up with PCP. Patient seems again he was drinking alcohol today. His states he was drinking again white claws alcohol. Patient called from his work and told he was not feeling good and getting withdrawal symptoms ,was feeling short of breath and shaky and told her that he wanted to get help and want to go to rehab again and later again drank alcohol.. brought him to the hospital for alcohol detox and rehab placement. wanted him to go to same rehab as he was in March. As patient was complaining of some shortness of breath with D-dimer elevation and also was worried for abdominal ascites CTA chest and CT abdomen pelvis were done. No PE and no ascites were found. Patient received Benadryl and also IV Ativan and somewhat drowsy currently. Denies any headache. Denies chest pain. Denies abdominal pain. Denies nausea. Has cough from smoking. Normal bowel and bladder movements. Hemodynamics are okay. is in the room. Alcoholism Alcohol withdrawal Alcohol level 206 drug screen positive for THC, Alcohol Continue gabapentin protocol IV Ativan as needed Continue thiamine, folic acid Monitor for withdrawal Patient interested in drug rehab placement No significant withdrawal symptoms today Case management to help with discharge planning Hypokalemia Replete and monitor Elevated D-dimer H/O PE --Chest CTA:No evidence of pulmonary embolism or pulmonary disease. -- Venous Doppler: No appreciated DVT. Continue Eliquis Hepatosplenomegaly Possible portal hypertension H/O Alcohol liver cirrhosis with ascites --CT ABD:Hepatomegaly with hepatic steatosis. Splenomegaly. Mild dilatation of portal veins with few small collaterals are noted in peripancreatic region and at the splenic hilum - suggest possibility of portal hypertension. No ascites. Bilateral fat containing inguinal hernia without complication. -- Counseled to quit alcohol use Interested in drug rehab placement Continue home diuretics Lasix, Aldactone Monitor volume status H/O THC use Denies any recent use GERD Continue Protonix Prolonged QTc Avoid QT prolonging drugs Monitor EKG Depression Hold fluoxetine and Seroquel for now for prolonged QTc Pancytopenia Due to alcohol liver disease/marrow suppression from alcohol use Leukopenia, thrombocytopenia resolved Monitor CBC DVT Px: Eliquis CODE STATUS Full code Disposition Case management to help with discharge planning Admission and Anticipated Discharge Date Admission Date: May 17, 2025 Subjective Reports feeling much improved today states he has contacted [place] for rehab denies any chest pain, sob, or other acute concerns notes tremors much less noticable Physical Exam Constitutional: WD/WN, vitals as above Respiratory: normal respiratory effort, lungs clear to auscultation Cardiovascular: RRR, no murmur, no edema Results & Data Results & Data Vital Signs (Past 12 Hours) Vital Signs Temp Pulse Resp BP BP Pulse Ox O2 Del Method 05/19/25 16:21 36.7 C 62 18 133/66 98 Room Air 05/19/25 11:38 36.8 C 83 16 114/74 94 Room Air 05/19/25 08:02 37.0 C 68 16 144/82 H 96 Room Air
--- NOTE | 2025-05-19 17:12 | Discharge Summary ---
Discharge Summary Date of Service May 19, 2025 Principal Dx & Hospital Course #1 = Principal Diagnosis (1) Alcoholism: Plan Mr. Choudhury is a 49-year-old male with past medical history significant for dyslipidemia, peripheral vascular disease, GERD, history of tick bite, depression, tobacco abuse, ongoing alcoholism admitted for alcohol withdrawal. Patient was in alcohol rehab in [facility] in March 2025 however relapsed. Patient in touch with rehab and medically stable to discharge. #Alcohol withdrawal #Alcohol use disorder Alcohol level 206 drug screen positive for THC, Alcohol Continue thiamine, folic acid discharge to [facility] #Elevated D-dimer #H/O PE --Chest CTA:No evidence of pulmonary embolism or pulmonary disease. -- Venous Doppler: No appreciated DVT. Continue Eliquis #Hepatosplenomegaly #Possible portal hypertension H/O Alcohol liver cirrhosis with ascites --CT ABD:Hepatomegaly with hepatic steatosis. Splenomegaly. Mild dilatation of portal veins with few small collaterals are noted in peripancreatic region and at the splenic hilum - suggest possibility of portal hypertension. No ascites. Bilateral fat containing inguinal hernia without complication. Continue home diuretics Lasix, Aldactone #H/O THC use Denies any recent use #GERD Continue Protonix #Prolonged QTc Avoid QT prolonging drugs holding fluoxetine and seroquel qtc 479 #Depression Hold fluoxetine and Seroquel for now for prolonged QTc repeat ekg for resumption as op or alternative agents #Pancytopenia Due to alcohol liver disease/marrow suppression from alcohol use Leukopenia, thrombocytopenia resolved Notes For Next Care Provider repeat labs in 1 week CBC and CMP Medication Changes From Visit Holding olanzapine and fluoxetine 2/2 prolong QTC at 479 consider repeat ekg or stepwise introduction of agents Admission HPI Per Admitting Provider 49-year-old male with past medical history significant for dyslipidemia, peripheral vascular disease, GERD, history of tick bite, depression, tobacco abuse, ongoing alcoholism presents for alcohol detox request. Patient was in alcohol rehab in [place] in [facility] in March 2025. But seems to started drinking shortly after the rehab. Patient was in the ER yesterday because he took [id number] kratom and also THC Gummies and drank 2 white claws which have 8% alcohol and was having dizziness, abdominal bloating and shortness of breath. He was found to have hypokalemia and hypomagnesia which were replaced. His symptoms improved and was discharged home to follow-up with PCP. Patient seems again he was drinking alcohol today. His states he was drinking again white claws alcohol. Patient called from his work and told he was not feeling good and getting withdrawal symptoms ,was feeling short of breath and shaky and told her that he wanted to get help and want to go to rehab again and later again drank alcohol.. brought him to the hospital for alcohol detox and rehab placement. wanted him to go to same rehab as he was in March. As patient was complaining of some shortness of breath with D-dimer elevation and also was worried for abdominal ascites CTA chest and CT abdomen pelvis were done. No PE and no ascites were found. Patient received Benadryl and also IV Ativan and somewhat drowsy currently. Denies any headache. Denies chest pain. Denies abdominal pain. Denies nausea. Has cough from smoking. Normal bowel and bladder movements. Hemodynamics are okay. is in the room. Past medical history. As mentioned above. Past surgical history. Colonoscopy. Dental surgery. EGD. EGD with endoscopic ultrasound. Injection of the lumbosacral spine. Social history. . Smoking electric cigarettes as per . Drinking heavy alcohol. Uses marijuana recreationally as per epic. Family history. Father alcoholism. Mother had osteoarthritis. Admission Exam Per Admitting Provider General- Drowsy Head- atraumatic Eyes- PERRL. ENT- oropharynx clear Neck- supple, no JVD. Lungs- clear to auscultation no wheezing or crackles Heart- regular rhythm; no murmur, no gallop. Abdomen- normal bowel sounds, soft, nontender, no distension Extremities- no pretibial edema, no erythema seen Neuro- Drowsy ; PERRL, ; no facial palsy; no dysarthria; moves extremities Discharge Exam Constitutional WD/WN, vitals as above Respiratory normal respiratory effort, lungs clear to auscultation Cardiovascular RRR, no murmur, no edema Gastrointestinal (Abdomen) normal bowel sounds, soft, nontender, no hepatosplenomegaly Updated Medication List Medication Instructions Recorded Confirmed Type apixaban 5 mg tablet (Eliquis) 5 mg PO BID 05/17/25 05/17/25 History fluoxetine 20 mg capsule 20 mg PO DAILY 09/13/25 09/13/25 History furosemide 40 mg tablet 40 mg PO DAILY 05/17/25 05/17/25 History pantoprazole 40 mg tablet,delayed 40 mg PO DAILY 05/17/25 05/17/25 History release quetiapine 25 mg tablet 25 mg PO HS 05/17/25 05/17/25 History spironolactone 50 mg tablet 50 mg PO DAILY 05/17/25 05/17/25 History Hospital Stay Data Consultations 05/17/25 04:31 ED Decision to Admit Stat Diagnostic Imagining Performed 05/17/25 02:15 CT abd pelvis IV con only Stat CT angio chest PE protocol Stat 05/17/25 12:35 US venous doppler LE BI Routine Discharge Instructions Given to Patient (Per Discharging Provider) You were admitted for alcohol withdrawal. You were started on gabapentin. You were accepted to [place] for rehab. Total Time Total Time Spent Total Time Spent (In Minutes): 45
[2025-05-19 18:17] VITALS: PULSE 93
[2025-05-20] MEDS ORDERED: FOLIC ACID 1 MG TAB PO SCH (09:00)
[2025-05-20] MEDS ORDERED: THIAMINE HCL 100 MG TAB PO SCH (09:00)
[2025-05-21] MEDS ORDERED: GABAPENTIN 600 MG TAB PO SCH
--- NOTE | 2025-05-22 16:33 | Electrocardiogram Report ---
Test Reason : Blood Pressure : */* mmHG Vent. Rate : 77 BPM Atrial Rate : 77 BPM P-R Int : 152 ms QRS Dur : 86 ms QT Int : 424 ms P-R-T Axes : 41 23 26 degrees QTcB Int : 479 ms Normal sinus rhythm Normal ECG When compared with ECG of 17-May-2025 01:09, (unconfirmed) No significant change was found Confirmed by Stephen Campos ([id number]) on 05/22/2025 4:32:32 PM Referred By: REFERRED SELF Confirmed By: Stephen Campos
== END 2025-05-19 18:19 | disposition alcohol treatment (31) | DRG 897 ==
LOC: ED 00:56 → SUATTDRO 05:32 → INTOOBSV 05:32 → EDINP 05:32 → 2N 12:36